=== PATIENT | female | born 1980 | race African-American/Black ===

== ENCOUNTER 2020-05-22 18:33 | Emergency (ER) | payer SELFPAY ==
[~2020-05-22] VITALS: Ht 147.3 cm; Wt 59.1 kg
[2020-05-22] MEDS ORDERED: ZOLP10TA8 PO (18:37)
[2020-05-22 20:51] VITALS: BP 147/82
== END 2020-05-23 00:05 | disposition home or self-care (01) ==
LOC: EMS 18:33
DX: Z76.0 Encounter for issue of repeat prescription (principal)
CPT/HCPCS: Z7502